=== PATIENT | female | born 1955 | race Caucasian/White ===

== ENCOUNTER 2018-04-19 06:42 | Day surgery (SDC) | payer OTHER ==
[2018-04-19] MEDS ORDERED: Midazolam 1 MG/ML 2 ML SDV IV ONE (08:00)
[2018-04-19] MEDS ORDERED: Sodium Chloride 0.9% 10 ML Syringe FLUSH PRN (08:00)
[2018-04-19] MEDS ORDERED: Lactated Ringers 1,000 ML IV SCH (08:00)
[2018-04-19] MEDS ORDERED: Propofol 200 MG/20 ML SDV IV ONE (08:00)
[2018-04-19] MEDS ORDERED: Simethicone Drops 40 MG/0.6 ML 30 ML Bottle ONE (08:06)
--- NOTE | 2018-04-19 08:36 | PCM.OPNOTE ---
- General Post-Op/Procedure Note Date of Surgery/Procedure: 04/19/18 Operative Procedure(s): c scope with bx Findings: transverse and sigmoid colon Pre Op Diagnosis: hx of colon polyps Post-Op Diagnosis: transverse and sigmoid colon Anesthesia Technique: MAC Primary Surgeon: Henry Talavera Anesthesia Provider: Rosalia Gordon Pathology: transverse and sigmoid colon Complications: None Condition: Good Free Text/Narrative:: see dictation
--- NOTE | 2018-04-19 09:13 | OR ---
DATE OF OPERATION: 04/19/2018 SURGEON: Henry Talavera MD PROCEDURES PERFORMED: Colonoscopy with cold forceps biopsy. PREOPERATIVE DIAGNOSIS: Personal history of adenomatous colon polyps. POSTOPERATIVE DIAGNOSIS: Polyps, transverse colon and sigmoid colon. INDICATIONS FOR PROCEDURE: This is a 62-year-old white female who presents for a followup colonoscopy. She has a personal history of colon polyps. DESCRIPTION OF PROCEDURE: After an excellent IV sedation was administered, digital rectal exam was performed. No marked abnormality was noted. The flexible colonoscope was inserted and advanced to the cecum without difficulty. The prep was excellent. The following findings were noted. Ascending colon, unremarkable. Transverse colon, in the proximal transverse colon, a small polypoid lesion, biopsied with cold biopsy forceps and sent for permanent. Descending colon, unremarkable. Sigmoid, in the distal sigmoid, small polypoid lesion, biopsied with cold biopsy forceps and sent for permanent. Rectum and anus, unremarkable. Colon was deflated. Scope was removed. The patient tolerated the procedure well and was taken to the recovery room in a good condition. /[id number] ROZ/MONSTER
[2018-04-19 10:39] VITALS: BP 101/66
--- NOTE | 2018-04-19 13:41 | PREOP ---
ADMISSION DATE: 04/19/2018 CHIEF COMPLAINT: History of colon polyps. HISTORY OF PRESENT ILLNESS: This is a 62-year-old white female, who was found to have adenomas on her colonoscopy seven years ago. She is now for a followup colonoscopy. She is currently without complaints. PAST MEDICAL HISTORY: Significant for anxiety, arthritis, depression, and hyperlipidemia. PAST SURGICAL HISTORY: Significant for abdominal hysterectomy, bilateral breast reduction, , hysterectomy, and oophorectomy. FAMILY HISTORY: Significant for multiple myeloma, COPD, hypertension, hyperlipidemia, peripheral vascular disease, and breast cancer. SOCIAL HISTORY: The patient is with three children. She does not smoke, has an occasional drink. REVIEW OF SYSTEMS: Negative for HEENT, cardiovascular, respiratory, and genitourinary. MEDICATIONS: Include the followin. Ventolin inhaler 2 puffs every 4-6 hours as needed for shortness of breath. 2. Lofibra 200 mg by mouth daily. 3. Paxil 30 mg daily. 4. Multivitamin one per day. 5. Calcium. 6. Vitamin D 1 per day. PHYSICAL EXAMINATION: GENERAL: This is a well-developed, well-nourished, white female, appearing in no acute distress. HEENT: Grossly within normal limits. LUNGS: Clear to auscultation. HEART: Had a regular rate and rhythm. ABDOMEN: Soft, nontender. ASSESSMENT: Personal history of colon polyps. PLAN: Colonoscopy. INFORMED CONSENT: Procedure and risks explained to the patient to include bleeding, infection, and perforation. /[id number] /MODL
== END 2018-04-19 09:45 | disposition home or self-care (01) ==
LOC: FB.SDS 06:42
PROVIDERS: ATTEND Surgery
DX: Z12.11 Encounter for screening for malignant neoplasm of colon (principal); D12.3 Benign neoplasm of transverse colon; D12.5 Benign neoplasm of sigmoid colon; I10 Essential (primary) hypertension; I73.9 Peripheral vascular disease, unspecified; E78.5 Hyperlipidemia, unspecified; C50.919 Malignant neoplasm of unspecified site of unspecified female breast; J44.9 Chronic obstructive pulmonary disease, unspecified; Z79.899 Other long term (current) drug therapy; Z88.2 Allergy status to sulfonamides; Z86.010 Personal history of colon polyps
CPT/HCPCS: 45380; 88305; A9270; J2250; J2704; J7120